=== PATIENT | male | born 1965 | race Caucasian/White ===

== ENCOUNTER 2021-04-27 15:04 | Emergency (ER) | payer BC, SELFPAY ==
--- NOTE | 2021-04-27 15:16 | XRR_ITS ---
PROCEDURE INFORMATION: Exam: XR Chest Exam date and time: 04/27/2021 3:16 PM Age: 56 years old Clinical indication: Sternal or substernal pain; Additional info: Cp TECHNIQUE: Imaging protocol: XR of the chest. Views: 1 view. COMPARISON: No relevant prior studies available. FINDINGS: Lungs: The lungs are clear. Pleural spaces: Unremarkable. No pleural effusion. No pneumothorax. Heart/Mediastinum: Unremarkable. No cardiomegaly. Bones/joints: Unremarkable. XR/XR chest 1V portable [id number] IMPRESSION: No acute cardiopulmonary abnormality.
--- NOTE | 2021-04-27 15:16 | ECG_ITS ---
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 Measurements Intervals [place] Rate: 88 P: 34 NV: 140 QRS: 1 QRSD: 88 T: 36 QT: 340 QTc: 412 Interpretive Statements SINUS RHYTHM No previous ECG available for comparison Electronically Signed On 04-27-2021 20:02:15 CDT by Elaina Garcia M.D. [email or web address]/[id number] f
[2021-04-27 15:23] VITALS: BP 128/86; PULSE 70; RESP 18; TEMP 36.7; O2SAT 96; BMI 35.6
[2021-04-27 18:54] VITALS: BP 135/69; PULSE 64; RESP 18; TEMP 36.5; O2SAT 95
[2021-04-27 20:08] LABS: Basophils # 0.1 10^3/uL (0.0-0.1); Basophils % 0.8 %; Eosinophils # 0.3 10^3/uL (0.0-0.8); Eosinophils % 4.4 %; Hematocrit 49.1 % (42.0-52.0); Hemoglobin 16.3 g/dL (11.7-16.6); Lymphocytes # 1.3 10^3/uL (0.8-4.8); Lymphocytes % 17.2 %; Mean Corpuscular HGB Conc 33.2 g/dL (30.0-36.0); Mean Corpuscular Hemoglobin 29.4 pg (28.0-34.0); Mean Corpuscular Volume 88.6 fl (80-94); Monocytes # 0.9 10^3/uL (0.2-0.9); Monocytes % 11.3 %; Neutrophils # 4.97 10^3/uL (1.8-7.7); Nucleated Red Blood Cells % 0 %; Platelet Count 235 10^3/cmm (130-400); Red Blood Count 5.54 10^6/uL (4.1-5.3); Red Cell Distribution Width 12.9 % (12.1-15.1); White Blood Count 7.5 10^3/uL (4.0-10.0)
[2021-04-27 20:20] LABS: Troponin(5th) Baseline 9 ng/L (0-15)
[2021-04-27 20:28] LABS: Alanine Aminotransferase 28 U/L (0-41); Albumin Level 4.5 g/dL (3.5-5.2); Alkaline Phosphatase 87 IU/L (40-130); Aspartate Amino Transferase 29 U/L (0-40); Blood Urea Nitrogen 23 mg/dL (6-20); Calcium 10.3 mg/dL (8.5-10.5); Carbon Dioxide 22 mmol/L (22-29); Chloride 101 mmol/L (98-107); Globulin 2.3 g/dL (1.3-4.6); Glucose 144 mg/dL (65-115); NT Pro B Type Natriuretic Pept 13 pg/mL (0-125); Osmolality Calculated 292 mOsm/kg (285-295); Sodium 138 mmol/L (136-145); Total Bilirubin 0.6 mg/dL (0.15-1.2); Total Protein 6.8 g/dL (6.6-8.7)
[2021-04-27 20:30] LABS: Anion Gap 19.5 (5-19); Potassium 4.5 mmol/L (3.5-5.1)
--- NOTE | 2021-04-27 21:16 | ECG_ITS ---
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 Measurements Intervals [place] Rate: 67 P: 43 VA: 158 QRS: 14 QRSD: 97 T: 41 QT: 392 QTc: 417 Interpretive Statements SINUS RHYTHM Compared to ECG 04/27/2021 15:31:12 No significant changes Electronically Signed On 04-28-2021 17:11:43 CDT by Pablo Bazan M.D. [email or web address] [email or web address].[place]/store/[id number] f
[2021-04-27 22:15] LABS: Troponin 5 2HR 7.88 ng/L (0-15)
[2021-04-27 22:16] LABS: Troponin 5 2HR Delta -1.12 ABS# (0-10)
[2021-04-27 23:00] VITALS: BP 139/77; PULSE 68; RESP 18; O2SAT 95
--- NOTE | 2021-04-27 23:27 | ED_ITS ---
HPI - Chest Pain General: Chief Complaint: Chest Pain Stated Complaint: CP Time Seen by Provider: 04/27/21 23:26 Source: patient and family () Mode of arrival: ambulatory Limitations: no limitations History of Present Illness: HPI narrative: While Gregory is a nice 56-year-old male who presents to ED today along with his for concerns of an episode of chest pain that began around 1:00 today rest. Patient tells me he began having substernal heaviness to his chest that radiated into his bilateral neck and jaw. He also states he became diaphoretic. Symptoms seemed to slowly regress but he continued to have intermittent short episodes of pain throughout the remainder of the afternoon and evening. Patient during my initial assessment tells me he is not currently experiencing chest pain. Of note they did mention a an episode of chest pain that occurred 3 weeks ago that they contributed to possibly heartburn as they had eaten Samoan that evening. Patient states episode today did not resemble the episode he had 3 weeks ago. He has no known cardiac or pulmonary history. MD complaint: chest pain Onset (ago): hour(s) Timing of current episode: episodic and now resolved Onset: during rest Pain location: substernal Pain radiation: neck and jaw/teeth Severity: moderate Quality: tightness and heaviness Relieving factors: nothing Exacerbating factors: nothing Associated symptoms: Reports diaphoresis; Deny abdominal pain, dyspnea, fever(s), nausea, palpitations, syncope or vomiting Treatment prior to arrival: none Risk Factors: Coronary artery disease risk factors: hypertension Review of Systems Const: Reports: diaphoresis; Denies: fever(s), chills, body aches, fatigue or malaise Eyes: Denies: change in vision or blurry vision ENMT: Denies: throat pain or odynophagia Card: Denies: chest pain, palpitations, irregular heart rhythm, edema, swelling of feet/ankles, lightheadedness, syncope, pre-syncope, dyspnea on exertion, orthopnea, leg pain with exertion or acrocyanosis Resp: Denies: dyspnea, productive cough, hemoptysis or chest congestion GI: Denies: abdominal pain, nausea, vomiting or diarrhea Musc: Denies: neck pain, back pain, extremity pain or joint pain Skin/Breast: Denies: rash Neuro: Denies: headache(s), numbness in extremities, weakness in extremities or sensory changes Physical Exam Const: COMMON NORMALS: no acute distress, patient oriented x3, no limitations and alert GENERAL APPEARANCE: cooperative NUTRITIONAL APPEARANCE: overweight ORIENTATION/CONSCIOUSNESS: Yes awake HENMT: COMMON NORMALS: normocephalic and atraumatic HEAD & SCALP: normocephalic and atraumatic Chest: COMMONS NORMALS: normal inspection of the chest and normal palpation of entire chest wall Resp: COMMON NORMALS: normal respiratory effort and clear to auscultation bilaterally AUSCULTATION: clear to auscultation bilaterally Cardio: COMMON NORMALS: regular rate and regular rhythm RATE: regular rate RHYTHM: regular rhythm GI: COMMON NORMALS: Normal to inspection, nondistended, normoactive bowel sounds present, Soft to palpation, non-tender, No hepatosplenomegaly present and no masses PALPATION: Yes Soft to palpation and Yes No hepatosplenomegaly present Extremity: COMMON NORMALS: no calf tenderness and no pedal edema Neuro: COMMON NORMALS: patient oriented x3 SENSORIUM/ORIENTATION: Yes alert Course Vital Signs: Vital signs: Vital Signs Temperature 97.7 F 04/27/21 18:54 Pulse Rate 64 04/27/21 18:54 Respiratory Rate 18 04/27/21 18:54 Blood Pressure 135/69 04/27/21 18:54 Pulse Oximetry 95 04/27/21 18:54 MDM - Chest Pain MDM Narrative: Medical decision making narrative: Patient during my examination tells me he is no longer having chest pain. His initial troponin is normal at 9 and has a negative delta. Initial and repeat EKGs without ischemic changes. Patient has no known cardiac history. At this time we will have case management set him up with an outpatient stress test and have results faxed up with Dr. Horta. Recommend he follow-up with Dr. Horta in the meantime for further evaluation. Return to ED precautions given. Lab Data: Labs: Lab Results 04/27/21 04/27/21 04/27/21 Range/Units 19:05 19:05 19:05 WBC 7.5 (4.0-10.0) 10^3/ uL RBC 5.54 H (4.1-5.3) 10^6/u L Hgb 16.3 (11.7-16.6) g/dL Hct 49.1 (42.0-52.0) % MCV 88.6 (80-94) fl MCH 29.4 (28.0-34.0) pg MCHC 33.2 (30.0-36.0) g/dL RDW 12.9 (12.1-15.1) % Plt Count 235 (130-400) 10^3/c mm MPV 9.0 (7.4-10.4) fL Neut % (Auto) 66.0 % Lymph % (Auto) 17.2 % [place] % (Auto) 11.3 % Eos % (Auto) 4.4 % Baso % (Auto) 0.8 % Neut # (Auto) 4.97 (1.8-7.7) 10^3/u L Lymph # (Auto) 1.3 (0.8-4.8) 10^3/u L [place] # (Auto) 0.9 (0.2-0.9) 10^3/u L Eos # (Auto) 0.3 (0.0-0.8) 10^3/u L Baso # (Auto) 0.1 (0.0-0.1) 10^3/u L Nucleated RBC % (a uto) 0 % Nucleated RBCs # 0.0 /100WBC Sodium 138 (136-145) mmol/L Potassium 4.5 (3.5-5.1) mmol/L Chloride 101 (98-107) mmol/L Carbon Dioxide 22 (22-29) mmol/L Anion Gap 19.5 H (5-19) BUN 23 H (6-20) mg/dL Creatinine 1.1 (0.7-1.2) mg/dL GFR Calculation 69.0 L (90-130) mL/min Glucose 144 H (65-115) mg/dL Calculated Osmolal ity 292 (285-295) mOsm/k g Calcium 10.3 (8.5-10.5) mg/dL Total Bilirubin 0.6 (0.15-1.2) mg/dL AST 29 (0-40) U/L ALT 28 (0-41) U/L Alkaline Phosphata se 87 (40-130) IU/L Troponin T Baselin e 9 (0-15) ng/L Troponin T 120 Min [place] (0-15) ng/L Delta Troponin T (0-10) ABS# NT-Pro-B Natriuret Pep 13 (0-125) pg/mL Total Protein 6.8 (6.6-8.7) g/dL Albumin 4.5 (3.5-5.2) g/dL Globulin 2.3 (1.3-4.6) g/dL 04/27/21 Range/Units 21:45 WBC (4.0-10.0) 10^3/ uL RBC (4.1-5.3) 10^6/u L Hgb (11.7-16.6) g/dL Hct (42.0-52.0) % MCV (80-94) fl MCH (28.0-34.0) pg MCHC (30.0-36.0) g/dL RDW (12.1-15.1) % Plt Count (130-400) 10^3/c mm MPV (7.4-10.4) fL Neut % (Auto) % Lymph % (Auto) % [place] % (Auto) % Eos % (Auto) % Baso % (Auto) % Neut # (Auto) (1.8-7.7) 10^3/u L Lymph # (Auto) (0.8-4.8) 10^3/u L [place] # (Auto) (0.2-0.9) 10^3/u L Eos # (Auto) (0.0-0.8) 10^3/u L Baso # (Auto) (0.0-0.1) 10^3/u L Nucleated RBC % (a uto) % Nucleated RBCs # /100WBC Sodium (136-145) mmol/L Potassium (3.5-5.1) mmol/L Chloride (98-107) mmol/L Carbon Dioxide (22-29) mmol/L Anion Gap (5-19) BUN (6-20) mg/dL Creatinine (0.7-1.2) mg/dL GFR Calculation (90-130) mL/min Glucose (65-115) mg/dL Calculated Osmolal ity (285-295) mOsm/k g Calcium (8.5-10.5) mg/dL Total Bilirubin (0.15-1.2) mg/dL AST (0-40) U/L ALT (0-41) U/L Alkaline Phosphata se (40-130) IU/L Troponin T Baselin e (0-15) ng/L Troponin T 120 Min [place] 7.88 (0-15) ng/L Delta Troponin T -1.12 L (0-10) ABS# NT-Pro-B Natriuret Pep (0-125) pg/mL Total Protein (6.6-8.7) g/dL Albumin (3.5-5.2) g/dL Globulin (1.3-4.6) g/dL Imaging Data^: CXR: Radiologist's impression: [employer] [address], [place] [address]FIyo ReportSigned Patient: Grant Agosto #: [id number]: 1965Acct#:[id number]/Sex: 56 / MADM Date: 04/27/21Loc: ERRoom/Bed:Attending Dr: Ordering Provider/Ordering MD: Joselito Talbot Date of Service: 04/27/21 Procedure(s): XR chest 1V portable [id number] Accession Number(s): [id number] Report Number: [id number] PROCEDURE INFORMATION: Exam: XR Chest Exam date and time: 04/27/2021 3:16 PM Age: 56 years old Clinical indication: Sternal or substernal pain; Additional info: Cp TECHNIQUE: Imaging protocol: XR of the chest. Views: 1 view. COMPARISON: No relevant prior studies available. FINDINGS: Lungs: The lungs are clear. Pleural spaces: Unremarkable. No pleural effusion. No pneumothorax. Heart/Mediastinum: Unremarkable. No cardiomegaly. Bones/joints: Unremarkable. XR/XR chest 1V portable [id number] IMPRESSION: No acute cardiopulmonary abnormality. Dictated By:Reynaldo Osei MDSigned By:Reynaldo Osei MDSigned Date/Time:04/27/211748DD/ 47 EKG Data^: EKG 1: EKG interpretation date: 04/28/21 EKG interpretation time: 15:31 Interpretation: Sinus rhythm Rate [address] elevation or depression changes noted EKG 2: EKG interpretation date: 04/28/21 EKG interpretation time: 00:32 Interpretation: Sinus rhythm Rate [address] elevation or depression changes noted No acute changes were noted when EKG performed earlier on same visit Discharge Plan Discharge Patient Disposition: Home Clinical Impression: Atypical chest pain Condition: Stable Discharge Orders: Discharge ED (Routine); Ordered 04/28/21 Ordered By: Dolores Gray Referrals: Raman Horta MD [Primary Care Provider] - Patient Instructions: Chest Pain (ED) Activity Restrictions/Additional Instructions: As we discussed your initial and repeat EKGs were normal. Your troponin enzymes were normal. Case management will work on getting you set up with an outpatient stress test and we will have results faxed to Dr. Horta. Please follow-up with his office as soon as possible if symptoms persist. Return to the emergency department for severe or worsening chest pain, shortness of breath, difficulty breathing, lightheadedness/dizziness/passing out episodes, or any other concerns you may have. I hope you begin to feel better soon. Coding Level of Care Code ED Hand Stapler for Shasha Jackson
[2021-04-28 00:55] VITALS: BP 139/77; PULSE 66; RESP 18; TEMP 36.7; O2SAT 97
--- NOTE | 2021-04-28 10:12 | DCPLANNER ---
mergers and acquisitions manager had message to schedule an outpatient stress test for patient. mergers and acquisitions manager faxed signed order to centralized scheduling, who will call patient with appointment information.
--- NOTE | 2021-04-30 10:16 | DCPLANNER ---
Patient has an out patient stress test scheduled for Thursday, May 13, 2021 at 1:00.
--- NOTE | 2021-05-29 09:21 | DCPLANNER ---
Patient had an outpatient stress test scheduled for 05.13.21 - patient did attend appointment.
== END 2021-04-28 00:50 | disposition home or self-care (01) ==
PROVIDERS: Physician Assistant; Emergency Provider Physician Assistant; PCP Family Medicine
DX: R07.89 Other chest pain (principal)
CPT/HCPCS: 71045; 80053; 83880; 84484; 85025; 93005; 99283

== ENCOUNTER 2021-05-13 10:18 | Outpatient (CLI) | payer BC, SELFPAY ==
[2021-05-13 10:56] VITALS: BMI 34.3
--- NOTE | 2021-05-13 11:07 | ECG_ITS ---
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 Interpretive Statements NAME OF STUDY: LEXISCAN SESTAMIBI STRESS TEST INDICATION: Chest Pain PROCEDURE: At the baseline, the blood pressure was 132/84 mmHg, oxygen saturation 99% with a heart rate of 78 bpm. The electrocardiogram showed normal sinus rhythm, normal axis with normal ST-T's. The Lexiscan was infused over a period of 20 seconds. A total of 0.4 milligrams of Lexiscan was infused. The stress phase was continued for a total of 5 minutes. Heart rate at the end of the stress phase was 99 bpm, oxygen saturation 96% with a blood pressure of 132/80 mmHg. The EKG at the peak infusion revealed sinus rhythm with no significant ST-T wave changes. The study was terminated due to protocol completion. Sestamibi was injected 20 seconds after the Lexiscan infusion. Blood pressure at the end of the recovery phase was 127/83 mmHg, oxygen saturation 92% with a heart rate of 95 beats per minute. CONCLUSION: 1. No significant EKG changes with the LexiScan infusion. 2. No LexiScan induced chest pain or cardiac arrhythmia. 3. Normal blood pressure and heart rate response. 4. Sestamibi/sestamibi perfusion scan pending; see separate report. RESULTS TO FAIZA HUSAIN MD Electronically Signed On 05-15-2021 14:43:05 CDT by Elaina Garcia M.D. [id number]
--- NOTE | 2021-05-13 11:08 | NMCV_ITS ---
NM gualberto perf SPECT r/s* [id number] AgostoGrant Age: 56 Gender: M : 1965 Exam Date: 05/13/2021 11:08 Ordering Phys: Dolores Gray Technologist: JUAN Lord Exam Location: [facility] Indications: ATYPICAL CHEST PAIN STRESS TEST Please see separate stress test report in [facility] for full findings IMAGE PROTOCOL Rest/Stress 1 Lexiscan Day Radiopharmaceutical Dose (mCi) Administration Site Administered by Rest: Tc-99m 10.7 IV JUAN Navarro Sestamibi Stress:Tc-99m 32.2 IV JUAN Lord Sestamibi Rest: 13-May-2021 60 Discovery 630 Stress: 13-May-2021 30 Discovery 630 0.4mg Lexiscan. Images obtained in supine and prone position. SPECT RESULTS Technical Quality: Excellent Raw Data Analysis: Normal Image Corrections: No attenuation or motion correction applied Summed Stress Score: 4 Summed Rest Score: 12 Summed Difference Score: 1 PERFUSION FINDINGS Patchy areas of decreased tracer uptake in inferior mid to apical inferolateral, septal and apical miranda on rest images. There is improved tracer uptake in stress images. This is suggestive of attenuation artifact. FUNCTIONAL RESULTS (calculated via Gated SPECT) Stress Image LV EF (%): 61 Stress EDV (mL):160 TID: 1.05 Stress ESV (mL):63 FUNCTIONAL FINDINGS: The left ventricle is normal in size. Transient Ischemia Dilatation of 1.1. There is normal left ventricular systolic function. The left ventricular ejection fraction is normal with a value of 61%. There is normal left ventricular wall thickening with no regional wall motion abnormality. Increased end-diastolic volume. IMPRESSIONS 1. Patchy areas of decreased tracer uptake in inferior, mid to apical inferolateral, mid septal and apical miranda. There is improved tracer uptake on stress imaging. These findings are suggestive of attenuation artifact. 2. Overall left ventricular systolic function is normal without regional wall motion abnormalities. 3. The left ventricular ejection fraction is normal with a value of 61%. 4. Normal EKG response to Lexiscan infusion. Refer to separate report for details. 5. No coronary ischemia based on the study. Elaina Garcia MD (Electronically Signed) Final Date: 15 May 2021 14:51 S
[2021-05-13] MEDS: regadenoson 0.4 Mg/5 ml Syringe IVP (12:40)
[2021-05-13 13:15] VITALS: BP 128/64; PULSE 72
== END 2021-05-13 10:19 | disposition home or self-care (01) ==
LOC: CDL 10:20
PROVIDERS: PCP Family Medicine; Visit Provider Physician Assistant
DX: R07.9 Chest pain, unspecified (principal)
CPT/HCPCS: 78452; 93017; A9500; J2785

== ENCOUNTER 2022-05-13 06:00 | Outpatient (RCR) | payer BC, SELFPAY | END 2022-06-04 23:59 | disposition home or self-care (01) | LOC: MPT 06:00 | PROVIDERS: PCP Family Medicine; Visit Provider Orthopaedic Surgery | DX: Z47.89 Encounter for other orthopedic aftercare (principal) | CPT/HCPCS: 97110; 97161; G0283 ==